=== PATIENT | female | born 1995 | race African-American/Black ===

== ENCOUNTER 2017-09-25 13:41 | Emergency (ER) | payer OTHER, SELFPAY ==
[2017-09-25 14:41] LABS: #Basophils 0.1 thou/uL (0.0-0.2); #Eosinphils 0.6 thou/uL (0.0-0.7); #Lymphocytes 2.9 thou/uL (1.20-3.40); #Monocytes 0.8 thou/uL (0.11-0.59); #Neutrophils 5.8 thou/uL (1.40-6.50); %Basophils 1.4 % (0.0-1.0); %Eosinophils 5.6 % (0.0-10.0); %Lymphocytes 28.5 % (21.0-51.0); %Monocytes 7.8 % (0.0-10.0); %Neutrophils 56.8 % (42.0-75.0); Hemoglobin 9.8 g/dL (12.0-16.0); Mean Corpuscular Hemoglobin 24.4 pg (27.0-31.0); Mean Corpuscular Volume 78.7 fl (81.0-99.0); Mean Platelet Volume 6.1 fL (7.4-10.4); Platelet Count 474 thou/uL (130-400); RBC Distribution Width 14.5 % (11.5-14.5); Red Blood Cell (RBC) Count 4.01 mill/uL (4.20-5.40); White Blood Cell (WBC) Count 10.2 thou/uL (4.8-10.8)
[2017-09-25] MEDS ORDERED: Ketorolac Tromethamine 30 MG/ML VIAL ONE (14:42)
[2017-09-25 14:58] LABS: ALT (SGPT) 10 U/L (8-55); AST (SGOT) 15 U/L (5-34); Albumin 4.3 g/dL (3.5-5.0); Alkaline Phosphatase 66 U/L (40-150); Anion Gap 10 mmol/L (10-20); BUN (Urea Nitrogen) 8 mg/dL (7.0-18.7); Bilirubin, Total 0.3 mg/dL (0.2-1.2); Calc. Creatinine Clearance 0 mL/min (70-130); Calcium 9.9 mg/dL (7.8-10.44); Carbon Dioxide 24 mmol/L (22-29); Chloride 108 mmol/L (98-107); Estimated GFR-MDRD Greater than 90; Globulin 3.1 g/dL (2.4-3.5); Glucose 104 mg/dL (70-105); Lipase 22 U/L (8-78); Protein, Total 7.4 g/dL (6.0-8.3); Sodium 138 mmol/L (136-145)
[2017-09-25 15:02] LABS: CKMB 0.5 ng/mL (0-6.6); Troponin I Less than 0.010 ng/mL (< 0.028)
--- NOTE | 2017-09-25 15:29 | RAD ---
PORTABLE CHEST ONE VIEW: Date: 09-25-17 Time: 2:59 p.m. History: Chest pain. FINDINGS: The cardiomediastinum is normal. The lungs are expanded and clear. The bony thorax is normal. IMPRESSION: Normal exam. POS: [facility]
[2017-09-25] MEDS ORDERED: hydrOXYzine 25 MG TAB ONE (15:59)
== END 2017-09-25 16:18 | disposition home or self-care (01) ==
LOC: ERS 13:41
DX: R07.89 Other chest pain (principal); F17.210 Nicotine dependence, cigarettes, uncomplicated; F41.9 Anxiety disorder, unspecified
CPT/HCPCS: 36415; 71045; 80053; 82553; 83690; 84484; 85025; 93005; 96361; 96372; 96374; J1885

== ENCOUNTER 2017-11-04 22:45 | Emergency (ER) | payer SELFPAY ==
[2017-11-04] MEDS ORDERED: Acetaminophen 500 MG TAB ONE (23:28)
[2017-11-04 23:35] LABS: MONO NEGATIVE CONTROL ZONE White (Negative) (White); MONO POSITIVE CONTROL Pink Line (Positive) (PINK/RED); Mononucleosis NEGATIVE (NEGATIVE)
[2017-11-04 23:36] LABS: Mean Corpuscular HGB CONC 31.3 g/dL (32.0-36.0); Mean Corpuscular Hemoglobin 23.2 pg (27.0-31.0); Mean Corpuscular Volume 74.3 fl (81.0-99.0); Mean Platelet Volume 5.8 fL (7.4-10.4); Platelet Count 366 thou/uL (130-400); RBC Distribution Width 14.6 % (11.5-14.5); Red Blood Cell (RBC) Count 3.43 mill/uL (4.20-5.40); White Blood Cell (WBC) Count 15.6 thou/uL (4.8-10.8)
--- NOTE | 2017-11-04 23:37 | RAD ---
CHEST TWO VIEWS: History: Dyspnea. Comparison: 09-25-17 FINDINGS: Lungs are clear. No pneumothorax or effusion. Cardiac silhouette and mediastinal contours are normal. IMPRESSION: No acute intrathoracic abnormality. POS: [facility]
[2017-11-04 23:47] LABS: ALT (SGPT) 11 U/L (8-55); AST (SGOT) 17 U/L (5-34); Albumin 4.1 g/dL (3.5-5.0); Alkaline Phosphatase 73 U/L (40-150); Anion Gap 11 mmol/L (10-20); BUN (Urea Nitrogen) 5 mg/dL (7.0-18.7); Bilirubin, Total 0.4 mg/dL (0.2-1.2); Calc. Creatinine Clearance 0 mL/min (70-130); Calcium 9.1 mg/dL (7.8-10.44); Carbon Dioxide 21 mmol/L (22-29); Chloride 107 mmol/L (98-107); Estimated GFR-MDRD Greater than 90; Globulin 2.9 g/dL (2.4-3.5); Glucose 93 mg/dL (70-105); Potassium 3.4 mmol/L (3.5-5.1); Sodium 136 mmol/L (136-145)
[2017-11-04] MEDS ORDERED: Ketorolac Tromethamine 30 MG/ML VIAL ONE (23:50)
[2017-11-04] MEDS ORDERED: Ondansetron ODT 4 MG TAB ONE (23:50)
[2017-11-05] LABS: #Basophils 0.1 thou/uL (0.0-0.2); #Eosinphils 0.1 thou/uL (0.0-0.7); #Lymphocytes 1.8 thou/uL (1.20-3.40); #Monocytes 1.2 thou/uL (0.11-0.59); #Neutrophils 12.4 thou/uL (1.40-6.50); %Basophils 0.6 % (0.0-1.0); %Lymphocytes 11.7 % (21.0-51.0); %Monocytes 7.4 % (0.0-10.0); %Neutrophils 79.4 % (42.0-75.0); Anisocytosis SLIGHT = 6-15 cells (100X) (0-5/hpf); MDiff Complete? YES
[2017-11-05] MEDS ORDERED: Dexamethasone 10 MG/ML VIAL ONE (00:03)
[2017-11-05] MEDS ORDERED: Dexamethasone 4 MG TAB ONE (00:05)
== END 2017-11-05 00:52 | disposition home or self-care (01) ==
LOC: ERS 22:45
DX: J02.9 Acute pharyngitis, unspecified (principal); R50.9 Fever, unspecified; F17.210 Nicotine dependence, cigarettes, uncomplicated; F41.9 Anxiety disorder, unspecified
CPT/HCPCS: 36415; 71046; 80053; 83605; 85025; 86308; 96361; 96374; J1100; J1885; J8540; Q0162

== ENCOUNTER 2018-03-14 19:31 | Emergency (ER) | payer SELFPAY | END 2018-03-14 22:37 | disposition home or self-care (01) | LOC: ERS 19:31 | DX: R11.2 Nausea with vomiting, unspecified (principal); F17.210 Nicotine dependence, cigarettes, uncomplicated; F41.9 Anxiety disorder, unspecified | CPT/HCPCS: 99283 ==

== ENCOUNTER 2018-04-08 02:15 | Emergency (ER) | payer SELFPAY ==
[2018-04-08 02:48] LABS: Mean Corpuscular HGB CONC 29.9 g/dL (32.0-36.0); Mean Corpuscular Hemoglobin 20.9 pg (27.0-31.0); Mean Corpuscular Volume 69.9 fL (78.0-98.0); Mean Platelet Volume 6.9 fL (7.4-10.4); Platelet Count 434 thou/uL (130-400); RBC Distribution Width 16.3 % (11.5-14.5); Red Blood Cell (RBC) Count 3.83 mill/uL (4.20-5.40); White Blood Cell (WBC) Count 10.8 thou/uL (4.8-10.8)
[2018-04-08 03:08] LABS: ALT (SGPT) 11 U/L (8-55); AST (SGOT) 16 U/L (5-34); Alkaline Phosphatase 56 U/L (40-150); Anion Gap 10 mmol/L (10-20); BUN (Urea Nitrogen) 6 mg/dL (7.0-18.7); Bilirubin, Total 0.2 mg/dL (0.2-1.2); CK (CPK) 61 U/L (29-168); Calc. Creatinine Clearance 0 mL/min (70-130); Calcium 8.8 mg/dL (7.8-10.44); Carbon Dioxide 23 mmol/L (22-29); Chloride 112 mmol/L (98-107); Estimated GFR-MDRD Greater than 90; Globulin 2.8 g/dL (2.4-3.5); Glucose 100 mg/dL (70-105); Potassium 3.8 mmol/L (3.5-5.1); Protein, Total 6.8 g/dL (6.0-8.3); Sodium 141 mmol/L (136-145)
[2018-04-08 03:10] LABS: CKMB 0.2 ng/mL (0-6.6); Troponin I Less than 0.010 ng/mL (< 0.028)
[2018-04-08] MEDS ORDERED: Fentanyl 100 MCG/2 ML VIAL ONE (03:17)
[2018-04-08] MEDS ORDERED: Ondansetron PF 4 MG/2 ML Vial ONE (03:17)
[2018-04-08 03:18] LABS: #Basophils 0.1 thou/uL (0.0-0.2); #Eosinphils 0.5 thou/uL (0.0-0.7); #Lymphocytes 4.6 thou/uL (1.20-3.40); #Monocytes 0.9 thou/uL (0.11-0.59); #Neutrophils 4.6 thou/uL (1.40-6.50); %Basophils 1.4 % (0.0-1.0); %Eosinophils 4.8 % (0.0-10.0); %Lymphocytes 42.9 % (21.0-51.0); %Monocytes 8.4 % (0.0-10.0); %Neutrophils 42.5 % (42.0-75.0); Hypochromia SLIGHT = 6-15 cells (100X) (0-5/hpf); MDiff Complete? YES; Microcytosis SLIGHT = 6-15 cells (100X) (0-5/hpf)
--- NOTE | 2018-04-08 08:02 | CT ---
PRELIMINARY REPORT/[facility]/EMERGENTY AFTER-HOURS PROCEDURE CT Head Without Intravenous Contrast EXAM DATE/TIME: 04/08/2018 2:42 AM CLINICAL HISTORY: 22 years old, female; Injury or trauma; Fall; Initial encounter; Blunt trauma (contusions or hematoma s); Patient HX: Er4, trauma2, fall, PT presents to for syncopal episode. Per ems PT reports she sh ocked herself when plugging something into a socket. Reports she layed down then got up to zeenat son approx. 10 min later when she fell hitting head. PT reports loc approx. 20 sec. PT th en asked family member to call 911. PT endorses neck pain, back pain and left arm numbness. TECHNIQUE: Axial computed tomography images of the head/brain without intravenous contrast. COMPARISON: No relevant prior studies available. FINDINGS: Brain: Normal. No hemorrhage. No significant white matter disease. No edema. Ventricles: Normal. No ventriculomegaly. Bones/joints: Normal. No acute fracture. Sinuses: Normal as visualized. No acute sinusitis. Mastoid air cells: Normal as visualized. No mastoid effusion. Soft tissues: Normal. IMPRESSION: No acute intracranial hemorrhage. Thank you for allowing us to participate in the care of your patient. Dictated and Authenticated by: Tanner Gutierrez MD 04/08/2018 3:10 AM Central Time ([place] & [place]) FINAL REPORT EMERGENCY AFTER HOURS CT BRAIN: Date: 04/08/18 IMPRESSION: I agree with the preliminary interpretation given by Maria Del Carmen. No evidence for intracranial hemorrhage or mass effect. POS: OFF
--- NOTE | 2018-04-08 08:03 | CT ---
PRELIMINARY REPORT/[facility]/EMERGENTY AFTER-HOURS PROCEDURE CT Cervical Spine Without Intravenous Contrast EXAM DATE/TIME: 04/08/2018 2:42 AM CLINICAL HISTORY: 22 years old, female; Injury or trauma; Fall; Initial encounter; Blunt trauma; Patient HX: Er4, traum a2, fall, PT presents to for syncopal episode. Per ems PT reports she shocked herself when pluggin g something into a socket. Reports she layed down then got up to zeenat son approx. 10 min later when she fell hitting head. PT reports loc approx. 20 sec. PT then asked family member to call 911. PT end orses neck pain, back pain and left arm numbness. TECHNIQUE: Axial computed tomography images of the cervical spine without intravenous contrast. COMPARISON: No relevant prior studies available. FINDINGS: Vertebrae: There is a reversal of the normal lordosis, related to positioning or spasm. No acute cerv ical spine fracture is demonstrated. Discs/Spinal canal/Neural foramina: The vertebral foramen are grossly intact. No spinal canal stenosi s or neural foraminal narrowing. Soft tissues: Unremarkable. Lungs: Lung apices are normal. IMPRESSION: No acute cervical spine fracture is demonstrated. Thank you for allowing us to participate in the care of your patient. Dictated and Authenticated by: Tanner Gutierrez MD 04/08/2018 3:13 AM Central Time ([place] & [place]) FINAL REPORT EMERGENCY AFTER HOURS CT CERVICAL SPINE: Date: 04/08/18 IMPRESSION: I agree with the preliminary interpretation given by Maria Del Carmen. POS: OFF
--- NOTE | 2018-04-08 08:05 | CT ---
PRELIMINARY REPORT/[facility]/EMERGENTY AFTER-HOURS PROCEDURE CT Thoracic Spine Without Intravenous Contrast EXAM DATE/TIME: 04/08/2018 2:42 AM CLINICAL HISTORY: 22 years old, female; Injury or trauma; Fall; Initial encounter; Blunt trauma (contusions or hematoma s); Patient HX: Er4, trauma2, fall, PT presents to for syncopal episode. Per ems PT reports she sh ocked herself when plugging something into a socket. Reports she layed down then got up to zeenat son approx. 10 min later when she fell hitting head. PT reports loc approx. 20 sec. PT th en asked family member to call 911. PT endorses neck pain, back pain and left arm numbness. TECHNIQUE: Axial computed tomography images of the thoracic spine without intravenous contrast. COMPARISON: No relevant prior studies available. FINDINGS: Vertebrae: No acute fracture. Normal alignment. Discs/Spinal canal/Neural foramina: No spinal stenosis. No neural foraminal narrowing. Soft tissues: Unremarkable. IMPRESSION: No acute findings. Thank you for allowing us to participate in the care of your patient. Dictated and Authenticated by: Tanner Gutierrez MD 04/08/2018 3:21 AM Central Time ([place] & [place]) FINAL REPORT EMERGENCY AFTER HOURS CT THORACIC SPINE: Date: 04/08/18 IMPRESSION: I agree with the preliminary interpretation given by Maria Del Carmen. POS: OFF
== END 2018-04-08 04:50 | disposition home or self-care (01) ==
LOC: ERS 02:15
DX: T75.4XXA Electrocution, initial encounter (principal); F17.210 Nicotine dependence, cigarettes, uncomplicated; Z71.6 Tobacco abuse counseling
CPT/HCPCS: 36415; 70450; 72125; 72128; 80053; 82553; 84484; 85025; 93005; 96361; 96374; 96375; 99406; G0390; J2405; J3010

== ENCOUNTER 2020-02-10 12:34 | Emergency (ER) | payer SELFPAY ==
[2020-02-10 13:39] LABS: #Basophils 0.1 thou/uL (0.0-0.2); #Eosinphils 0.3 thou/uL (0.0-0.7); #Lymphocytes 2.5 thou/uL (1.20-3.40); #Monocytes 0.8 thou/uL (0.11-0.59); #Neutrophils 6.9 thou/uL (1.40-6.50); %Basophils 0.8 % (0.0-1.0); %Eosinophils 3.2 % (0.0-10.0); %Lymphocytes 23.5 % (21.0-51.0); %Monocytes 7.5 % (0.0-10.0); %Neutrophils 65.1 % (42.0-75.0); Hemoglobin 10.5 g/dL (12.0-16.0); Mean Corpuscular HGB CONC 30.2 g/dL (32.0-36.0); Mean Corpuscular Volume 82.9 fL (78.0-98.0); Mean Platelet Volume 6.2 fL (7.4-10.4); Platelet Count 471 thou/uL (130-400); RBC Distribution Width 14.3 % (11.5-14.5); White Blood Cell (WBC) Count 10.6 thou/uL (4.8-10.8)
[2020-02-10] MEDS ORDERED: Acetaminophen 500 MG TAB ONE (13:40)
[2020-02-10 13:53] LABS: BHCG - Serum POSITIVE (NEGATIVE); Pregs Control Background? CLEAR/WHITE (CLR/WHITE); Pregs Control Bar Appear? YES (CONTROL BAR)
[2020-02-10 13:58] LABS: Bilirubin Negative (Negative); Blood, Urine Negative (Negative); Clarity Turbid (Clear); Glucose, Urine (Dipstick) Normal (Negative); Ketone, Urine Negative (Negative); Leukocyte Negative Leu/uL (Negative); Nitrite Negative (Negative); Protein, Urine (Dipstick) Negative (Neg-Trace); Specific Gravity, Urine 1.006 (1.002-1.036); Urobilinogen Normal mg/dL (Less than 2); pH, Urine 6.5 (5.0-9.0)
--- NOTE | 2020-02-10 14:59 | ULT ---
Exam: Transabdominal and endovaginal pelvic ultrasound HISTORY:Spotting. COMPARISON: None TECHNIQUE: Transabdominal and endovaginal imaging of the pelvis is performed. Ovaries are interrogate d with grayscale, color flow, Doppler imaging and spectral wave form analysis FINDINGS: Uterus: No myometrial masses. Uterus measurin.6 x 6.2 x 9.5 cm. Endometrium: Suboptimal evaluation of the endometrium. Suggestion of possible gestational sac measuri ng 0.55 cm which is corresponding to gestational age of 5 weeks 2 days. No evidence of a yolk sac, pole or subchorionic hemorrhage. . Free fluid: None Right ovary: Normal echotexture. Right ovary measurement: 2.3 x 2.7 x 1.7 cm Left ovary: Normal echotexture. Left ovary measurements: 2.2 x 2.5 x 2.4 cm Ovarian Doppler: There is vascular flow to the right and left ovary. Incidentals: Graphics Intern questioned the possibility of a didelphic uterus. However there comparison/c orrelation made with previous imaging does not demonstrate a definite uterus. There does appear to be abnormal soft tissue density inferior to the uterus on the repeat series of images. Etiology is un certain. IMPRESSION: 1. Limited evaluation endometrium. There appears be anechoic focus which may represent a gestational sac. Mean sac diameter is compatible with a gestational age of 5 weeks 2 days. No evidence of a yolk sac, pole or heart tones. Possibility of a pseudogestational sac from a sonographica lly occult ectopic cannot be excluded. Follow-up ultrasound and serial beta hCG is recommended. 2. Graphics Intern questions of possible didelphic uterus. However, correlation made with previous ultras ound and CT does not demonstrate didelphic uterus. There does appear to abnormal soft tissue echotexture posterior to the uterus. Etiology is uncertain, despite repeat imaging. Close follow-up e xam is recommended. Results conveyed to Melissa Jeong 02/10/2020 at 3:48 PM Code CR
== END 2020-02-10 15:47 | disposition home or self-care (01) ==
LOC: ERS 12:34
DX: O02.1 Missed abortion (principal)
CPT/HCPCS: 36415; 76856; 81003; 84702; 84703; 85025; 86900; 86901; 87086

== ENCOUNTER 2020-05-24 15:17 | Day surgery (SDC) | payer MEDICAID, OTHER ==
--- NOTE | 2020-05-24 15:47 | HP ---
LOCATION: [facility] [place] bed 2. The patient was evaluated around 1510 hours today. This is a patient of Dr. Aldridge at [facility]. CHIEF COMPLAINT: Severe abdominal pain since this morning. HISTORY OF PRESENT ILLNESS: This is a 24-year-old, G4, P1, SAB2, with an estimated due date of October 05 putting her at 20 weeks and 6 days, who states that she began to have severe constant upper fundal pain for about 1 to 2 hours ago. She denies any recent trauma. She did have intercourse yesterday, but denies any unusual acts or forceful actions. She does not notice any vaginal bleeding or leakage of fluid. She has some irregular movement. She has no fevers. REVIEW OF SYSTEMS: GENERAL: No sick contacts. No fevers. PULMONARY: No shortness of breath. CARDIOVASCULAR: No chest pain. GI//ABDOMEN: Abdominal pain as discussed. EXTREMITIES: No lower extremity edema or unusual pain. PAST MEDICAL HISTORY: Anemia. MEDICATIONS: vitamins and iron supplements. ALLERGIES: TO HYDROCODONE, WHICH GIVES HER A RASH. SOCIAL HISTORY: Positive for tobacco. She states that she smokes 1 to 2 cigarettes a day. PAST SURGICAL HISTORY: x1. PHYSICAL EXAMINATION: She is in moderate discomfort, but is still alert and oriented. It is important to note that she arrived by ambulance. The ambulance report was that they had administered 1800 mL of fluid and fentanyl 50 mcg en route. Her blood pressure by first assessment by them was 80/40. It is now 102/60 with a pulse of 83 to 90s. Abdomen is tender and fundus is firm. I performed a vaginal exam, she is not dilated nor there are any vaginal bleeding or leakage of fluid. Bedside ultrasound: I performed a bedside ultrasound, which confirms a single IUP in a transverse position with positive cardiac motion about 120s grossly. There is a fundal placenta with large retroplacental lucencies suggestive of blood clots. ASSESSMENT: This is a 24-year-old, G4, P1, at 20 weeks and 6 days with clinical evidence of placental abruption. This is based on history, symptoms, and ultrasound findings. heart tones are currently present. PLAN: 1. I have discussed with her, and Madyson, who is our charge nurse, possible transfer as we do not have Maternal Medicine Services here and as her gestational age is 20 weeks and 6 days. 2. I have also discussed with the patient the limits of viability and the need for transfer: Need for MFM supervision/guidance/possible induction of labor. 3. I did discuss with her that because of the limits of service here, I would recommend their transfer to another location [facility]. 4. I am having Shantel, a Labor and Delivery Assist, with this possible transfer. 5. I have ordered HIV, RPR, hepatitis B surface antigen, hepatitis C, CBC, PT, PTT, and fibrinogen stat. 6. I have ordered a stat bedside ultrasound as we prepare for transfer, so I can have something to help the accepting physicians once that is available. 7. If the patient somehow becomes more unstable, we may have to intervene here rather than transfer, but for now she is still cleared for transfer. Job ID: [id number]
--- NOTE | 2020-05-24 16:03 | PRG ---
DATE OF SERVICE: 05/24/2020 TRANSFER NOTE In brief, I have talked with the receiving MFM physician through the transfer center and that physician has agreed for her transport along the patient is stable. I discussed with the patient the entire history. The physician to request type and cross for 2 units, which I have ordered and this will go en route with her. Per the MFM physician of the patient shows signs of deterioration we may have to proceed with hysterotomy here and delivery, although I am trying to stabilize the patient enough to allow for air transport. If air is not available, we will do ground, but this is based on availability of flight crew. Again, I have talked to the receiving [facility] physician at the other facility and we are awaiting transfer availability. Job ID: [id number] [facility]
--- NOTE | 2020-05-24 16:08 | PDOC.BPN ---
- Brief Progress Note We will begin transfusion 1 unit PRNCs now to prepare her for possible hysterotomy at receiving hospital. Second unit to go with her.
[2020-05-24 16:13] VITALS: BP 92/52; TEMP 97.9
[2020-05-24 16:15] LABS: #Eosinphils 0.2 thou/uL (0.0-0.7); #Lymphocytes 2.4 thou/uL (1.20-3.40); #Neutrophils 13.3 thou/uL (1.40-6.50); %Basophils 0.3 % (0.0-1.0); %Eosinophils 1.4 % (0.0-10.0); %Lymphocytes 14.3 % (21.0-51.0); %Monocytes 5.7 % (0.0-10.0); %Neutrophils 78.4 % (42.0-75.0); Hemoglobin 10.5 g/dL (12.0-16.0); Mean Corpuscular HGB CONC 32.7 g/dL (32.0-36.0); Mean Corpuscular Hemoglobin 28.3 pg (27.0-31.0); Mean Corpuscular Volume 86.7 fL (78.0-98.0); Mean Platelet Volume 6.9 fL (7.4-10.4); Platelet Count 272 thou/uL (130-400); RBC Distribution Width 15.7 % (11.5-14.5); Red Blood Cell (RBC) Count 3.72 mill/uL (4.20-5.40); White Blood Cell (WBC) Count 16.9 thou/uL (4.8-10.8)
[2020-05-24 16:21] LABS: Prothrombin Time 13.1 sec (12.0-14.7)
[2020-05-24 16:22] LABS: PTT 25.8 sec (22.9-36.1)
--- NOTE | 2020-05-24 16:23 | PRG ---
DATE OF SERVICE: 05/24/2020 TIME: 1556 hours. LOCATION: Labor and Delivery. Patient update. In brief, this patient is having continued and progressive abdominal pain and I do not suspect she will be able to wait much longer for potential transfer as we wait for an Air Team. As I discussed with the MFM team at the receiving hospital, best plan of action would be to proceed with hysterotomy as the placental abruption is large enough to be seen on ultrasound and based on the limits of viability. The ultrasound reveals that she has size consistent with dates at 20 weeks and 6 days, transverse lie with an anterior placenta. The baby's heart beat is 145 beats per minute. Amniotic fluid index is about 9.3, although it is hard to read at 20 weeks. The largest pocket was normal. I have also called her [employer] backup, who is Dr. Madalyn Morales, who was aware and I have requested her to be on the floor in case we have to proceed back for a hysterotomy. I have also requested that we notified the labor and delivery nurse management, because we will be causing a 21 week delivery for maternal safety/benefit. I have also asked for her to receive the first unit of blood now in preparation of surgery either here or at the receiving hospital. Obviously, IF we decide to proceed with surgery here, then we will cancel the transfer again. Still awaiting transfer. [facility] ID: [id number] [facility]
[2020-05-24 16:29] VITALS: BMI 25.3
--- NOTE | 2020-05-24 16:30 | PDOC.BPN ---
- Brief Progress Note Air Transfer team here on unit. Andrew here as stand by.
--- NOTE | 2020-05-24 16:36 | ULT ---
Obstetric sonogram limited HISTORY: Premature rupture of membranes. FINDINGS: Single intrauterine gestation in transverse presentation. Amniotic fluid index 9.3. Grade 0 placenta is anterior. Heart motion at 144 bpm. Measurements are as follows: Biparietal diameter 20 weeks 0 days Head circumference 20 weeks 5 days Abdominal circumference 20 weeks 4 days Femur length 20 weeks 5 days [place] 35 percentile. Estimated weight 369 g (0 lbs. 13 oz.). IMPRESSION : Single intrauterine gestation estimated gestational age 20 weeks 2 days. Amniotic fluid index 9.3.
[2020-05-24 16:51] LABS: Syphilis Antibody Nonreactive (Nonreactive); Syphilis Antibody Index 0.08 S/CO (<1.00 Non-Reactive)
[2020-05-24 16:51] LABS: Amphetamine Not Detected (NotDetected); Cocaine Metabolite Screen Not Detected (NotDetected); Medtox Reader # READER 4; Methamphetamine Not Detected (NotDetected); Opiate Screen Not Detected (NotDetected); Phencyclidine (PCP) Not Detected (NotDetected); THC/Cannabinoid Screen Not Detected (NotDetected)
[2020-05-24 16:52] LABS: HBSAg Index 0.15 S/CO (0-0.99); HIV (1/2) Antibody/Antigen Non-Reactive (NonReactive); HIV 1/2 INDEX 0.11 S/CO (<1.00); Hep B Surf Ag Non-Reactive S/CO (NonReactive); Hep C IgG Ab Non-Reactive (NonReactive); Hep C Index 0.08 S/CO (0-0.79)
[2020-05-24 16:52] LABS: Barbiturates Screen Not Detected (NotDetected); Benzodiazepine Screen Not Detected (NotDetected); Medtox Control Line Valid? VALID (VALID); Methadone Not Detected (NotDetected); Oxycodone Screen Not Detected (NotDetected); Tricyclic Screen Not Detected (NotDetected)
[2020-05-24 16:53] LABS: HBSAg Index 0.15 S/CO (0-0.99); Hep B Surf Ag Non-Reactive S/CO (NonReactive); Hep C IgG Ab Non-Reactive (NonReactive); Hep C Index 0.09 S/CO (0-0.79)
[2020-05-25] MEDS ORDERED: FLU VACC QS2020-21(6MOS UP)/PF 60 MCG/0.5 ML SYRINGE IM ONE (12:30)
== END 2020-05-24 16:43 | disposition short-term general hospital (02) ==
LOC: L&D/OP 15:17
PROVIDERS: ATTEND Obstetrics & Gynecology
DX: O45.00 Premature separation of placenta with coagulation defect, unspecified (principal); O99.891 Other specified diseases and conditions complicating pregnancy; R10.10 Upper abdominal pain, unspecified; O99.013 Anemia complicating pregnancy, third trimester; D64.9 Anemia, unspecified; O99.332 Smoking (tobacco) complicating pregnancy, second trimester; F17.210 Nicotine dependence, cigarettes, uncomplicated; O34.219 Maternal care for unspecified type scar from previous cesarean delivery; Z3A.20 20 weeks gestation of pregnancy; Z88.5 Allergy status to narcotic agent; Z88.6 Allergy status to analgesic agent
CPT/HCPCS: 36415; 36430; 51702; 76815; 80306; 85025; 85384; 85610; 85730; 86780; 86803; 86850; 86900; 86901; 87340; 87389; 96361; 96365; 99285; P9016